=== PATIENT | female | born 1990 | race Two or more races ===

== ENCOUNTER 2024-05-14 21:42 | Emergency (ER) | payer MEDICAID, SELFPAY ==
[2024-05-14 21:43] VITALS: BMI 31.4
[2024-05-14 22:09] VITALS: BP 144/81; PULSE 107; RESP 20; TEMP 37.6; O2SAT 97
--- NOTE | 2024-05-14 22:24 | PD.EDRME ---
Rapid Medical Screening Exam RME Arrival date/time: 05/14/24 21:42 Chief Complaint: Allergic Reaction Time Seen by Provider: 05/14/24 21:44 Vital signs: Vital Signs Temperature 99.6 F 05/14/24 22:09 Pulse Rate 107 H 05/14/24 22:09 Respiratory Rate 20 05/14/24 22:09 Blood Pressure 144/81 H 05/14/24 22:09 Pulse Oximetry (%) 97 05/14/24 22:09 Oxygen Delivery Method Room Air 05/14/24 22:09
[2024-05-14] MEDS: FAMOTIDINE 20 MG TABLET PO (22:46)
[2024-05-14] MEDS: predniSONE 20 MG TABLET 60 MG PO (22:46)
[2024-05-14] MEDS: DiphenhydrAMINE ELIX 25 MG/10 ML UDC 50 MG PO (22:46)
--- NOTE | 2024-05-14 23:53 | PD.EDALLER ---
ED Allergic Reaction RME/HPI General Chief complaint: Allergic Reaction Stated complaint: POSS ALLERGIC REACTION Time Seen by Provider: 05/14/24 21:44 Arrival date/time: 05/14/24 21:42 33 year old female present to emergency room with c/o possible allergic reaction to theraflu prior arrival. LOCATION: face, back, abd SEVERITY: Symptoms are described as being severe with limitations on activities of daily living QUALITY: Symptoms are described as being itchy CONTEXT: rash appeared after taking theraflu DURATION/TIMING: The symptoms started approximately one day ago and have been constant this then, and have been progressive getting worse. ASSOCIATED SYMPTOMS: The patient is unable to identify any other associated symptoms. MODIFYING FACTORS: The patient is unable to identify any alleviating or aggravating symptoms. PERTINENT ROS: denies IVDU, states no immunocompromising condition denies any penetrating trauma, no fever, no unexplained nausea or vomiting, no headache, no chest pain no dificulty swallowing, shortness of breath, syncope, dizziness, nausea,vomiting REVIEW OF SYSTEMS: See History of Present Illness - with the exception of those mentioned in the history of present illness, all other systems reviewed and reported as negative GENERAL: In general the patient is awake, interactive, in an emergency department gurney. HEAD/EYES/EARS/NOSE/THROAT: normo-cephalic, atraumatic, mucus membranes are moist, anicteric, palpebral conjunctiva is pink, trachea is midline. CARDIOVASCULAR: regular rate and regular rhythm, no murmurs, heart sounds are not distant, strong pulses in all four extremities that are equal and symmetric bilateral upper and lower extremities, normal capillary refill. CHEST/PULMONARY: normal chest rise and fall, good air movement, clear to auscultation bilaterally, normal inspiratory to expiratory ratios without evidence of respiratory distress. NECK: No midline/Paraspinal tenderness, no step off ROM/Strenght intact No Kernig and bruzinski sign. No trauma ABDOMEN: soft, not tender, no masses appreciated BACK: normal range of motion without pain. NEUROLOGICAL: cranio-facial features are symmetric, moves all four extremities equally without obvious limitations or weakness. EXTREMITY: no tenderness to palpation over the long bones or large joints of the bilateral upper and lower extremities, no joint swelling, no joint erythema, no signs of trauma, no unilateral leg swelling and no peripheral edema. SKIN: warm, dry, well-perfused, no jaundice, bilateral rash like hives on cheek. no telangiectasias or petechia. PSYCH: calm, cooperative, no evidence of psychosis or agitation RME / HPI RME / HPI narrative: 05/14/24 21:42 Related Data Home Medications ?Medication ?Instructions ?Recorded ?Confirmed vitamins-iron fumarate 27 1 tab PO QDAY 07/07/19 04/08/21 mg iron-folic acid 0.8 mg tablet ( Vitamin) ferrous sulfate 325 mg (65 mg 325 mg PO BID 03/10/21 04/08/21 iron) tablet (Iron (ferrous sulfate)) Previous Rx's ?Medication ?Instructions ?Recorded loratadine 10 mg tablet (Claritin) 10 mg PO QDAY #30 tabs 05/14/24 Allergies Allergy/AdvReac Type Severity Reaction Status Date / Time No Known Allergies Allergy Verified 04/07/21 16:49 Course Course Course Narrative: Patient presenting with allergic reaction.? The inciting event was likely allergic reaction .? Patient provided bendaryl, pepcid, predisone .? Following which, patient stated they felt improved.? Patient monitored for a period of 2 hours.? Discussed continuing benadryl treatments.? ?Patient is to follow up with primary care provider to further discuss anaphylactic treatment and allergin testing as needed.? Return to clinic or emergency department urgently if new or worsening symptoms develop including oral swelling, difficulty breathing, chest pain, shortness of breath, worsening rash, headache, or other worrisome symptoms. ? ? Plan:?? Diphenhydramine? Loratadine advised pt to pump and dump breast milk before feeding child, discussed possible cross over with medication given in ER.? Advised Pt on supportive therapies, including decreasing exposure to possible allergens, cold application, OTC ibuprofen as directed prn, and advancement of fluids as tolerated. Educated Pt on signs and symptoms of anaphylaxis and instructed her to report to ETC should worrisome signs present.? Pt verbally expressed understanding and all questions were addressed to Pt's satisfaction. Quality Measures none Orders Category Date Time Status DiphenhydrAMINE [Benadryl] Med 05/14/24 22:23 Discontinued 50 mg PO X1 ONE Famotidine [Pepcid] Med 05/14/24 22:23 Discontinued 20 mg PO X1 ONE predniSONE Med 05/14/24 22:23 Discontinued 60 mg PO X1 ONE Vital Signs Vital signs: Vital Signs Temperature 99.6 F 05/14/24 22:09 Pulse Rate 107 H 05/14/24 22:09 Respiratory Rate 20 05/14/24 22:09 Blood Pressure 144/81 H 05/14/24 22:09 Pulse Oximetry (%) 97 05/14/24 22:09 Oxygen Delivery Method Room Air 05/14/24 22:09 Allergic Reaction Patient data External records reviewed:: [facility] previous records Clinical information provided by:: patient Social determinants that could affect healthcare access:: none Patient has the following chronic illnesses:: n/a How is presenting disease/condition affected by chronic disease/condition?: no chronic disease Evaluation data The following diagnostics were reviewed and interpreted by me:: other (specify) (n/a ) Lab and/or radiology exams considered but not ordered:: n/a Interpretation Summary: n/a Medications / Prescriptions Medications or Prescriptions considered but not ordered:: n/a Medication administrations:: Medication Administration History Discontinued Medications Diphenhydramine HCl (Diphenhydramine Elix 25 Mg/10 Ml Udc) 50 mg PO X1 ONE Stop: 05/14/24 22:24 Last Admin: 05/14/24 22:46 Dose: 50 mg Documented By: RACHID Famotidine (Famotidine 20 Mg Tablet) 20 mg PO X1 ONE Stop: 05/14/24 22:24 Last Admin: 05/14/24 22:46 Dose: 20 mg Documented By: RACHID Prednisone (Prednisone 20 Mg Tablet) 60 mg PO X1 ONE Stop: 05/14/24 22:24 Last Admin: 05/14/24 22:46 Dose: 60 mg Documented By: RACHID as stated above Consultations Consultation(s) initiated? (list below): No Diagnosis Most likely diagnosis given after review of the tests above:: allergic reaction Admission Indicated Admission indicated?: not indicated Admission Request Was there a request for admission?: No Disposition Plan Disposition Plan: Discharge Discharge Attestation Discharge Attestation: The patient and all family members were given an opportunity to ask questions and understood the discharge instructions. Discharge instructions specifically effects, indications for sooner follow up or return to the emergency department, and the expected course of current diagnosis. Patient condition: Stable Discharge Plan Plan Patient Disposition: HOME (Self Care) Prescriptions/Referrals Prescriptions/Med Rec: New loratadine [Claritin] 10 mg tablet 10 mg PO QDAY Qty: 30 0RF No Action Vitamin 27 mg iron- 0.8 mg Tablet 1 tab PO QDAY ferrous sulfate [Iron (ferrous sulfate)] 325 mg (65 mg iron) Tablet 325 mg PO BID Referrals: No Primary/Family,Physician [Primary Care Provider] - In 1 week Problem List Clinical Impression: Allergic reaction Patient/Caregiver Discharge Instructions Education Materials: ED Medicine Reaction: Allergic Print Language: Senegalese Stand Alone Forms: Samantha Award Info., Patient Portal Info Letter
== END 2024-05-15 00:02 | disposition home or self-care (01) ==
PROVIDERS: Emergency Provider Emergency Medicine
DX: L27.0 Generalized skin eruption due to drugs and medicaments taken internally (principal); T37.5X5A Adverse effect of antiviral drugs, initial encounter
CPT/HCPCS: 99282; J7512; A9270